=== PATIENT | male | born 1990 | race African-American/Black ===

== ENCOUNTER 2020-11-29 05:36 | Emergency (ER) | payer SELFPAY ==
[2020-11-29] MEDS ORDERED: Ketorolac Tromethamine 30 MG/ML VIAL ONE (05:59)
== END 2020-11-29 07:15 | disposition home or self-care (01) ==
LOC: ERS 05:36
DX: S79.101A Unspecified physeal fracture of lower end of right femur, initial encounter for closed fracture (principal); F17.210 Nicotine dependence, cigarettes, uncomplicated; W19.XXXA Unspecified fall, initial encounter
CPT/HCPCS: 96374; J1885